=== PATIENT | male | born 1965 | race Two or more races ===

== ENCOUNTER 2019-09-14 06:40 | Day surgery (SDC) | payer OTHER ==
[~2019-09-14 06:40] MED LIST: CRESTOR5 MG PO
== END 2019-09-14 11:30 | disposition home or self-care (01) ==
LOC: AMB-ENDOS 06:40
DX: K62.89 Other specified diseases of anus and rectum (principal); K64.8 Other hemorrhoids

== ENCOUNTER 2019-09-18 06:00 | Day surgery (SDC) | payer OTHER ==
[2019-09-18] MEDS ORDERED: COLACE100 MG PO (09:39)
[2019-09-18] MEDS ORDERED: PERCOCET 5-3251 EACH PO (09:39)
[2019-09-18] MEDS ORDERED: NEURONTIN300 MG PO (09:39)
== END 2019-09-18 18:15 | disposition home or self-care (01) ==
LOC: CIR.AMB 06:00
DX: K64.8 Other hemorrhoids (principal); K64.4 Residual hemorrhoidal skin tags